=== PATIENT | female | born 1950 | race African-American/Black ===

== ENCOUNTER 2016-10-16 17:40 | Inpatient (IN) | payer OTHER ==
[~2016-10-16] VITALS: Ht 157.5 cm; Wt 60.0 kg
[~2016-10-16 17:40] MED LIST: ALLO100T PO; LISI-363 PO; LORTA5 PO; METO100T PO; NIFE90TA37 PO; NOVOINJ6 SQ; SIMV10TA PO; ZOFR4TAB3 SL
[2016-10-16 17:42] VITALS: BP 145/73; PULSE 72; RESP 15; TEMP 97.7; O2SAT 96
[2016-10-16 17:53] VITALS: BP 134/85; PULSE 72; RESP 18; TEMP 98; O2SAT 96
[2016-10-16] MEDS ORDERED: HYDR12.57 PO (18:07)
[2016-10-16] MEDS ORDERED: METO50TA11 PO (18:07)
[2016-10-16] MEDS ORDERED: ALLO100T PO (18:07)
[2016-10-16] MEDS ORDERED: NIFE90TA2 PO (18:07)
[2016-10-16] MEDS ORDERED: LISI-515 PO (18:07)
[2016-10-16] MEDS ORDERED: SODIUM CHLOR 0.9% 1000 ML INJ 1,000 ML IV SCH (18:26)
--- NOTE | 2016-10-16 18:26 | PD ---
HPI Chief Complaint: Abnormal Results Time Seen by Provider: 18:22 Travel History International Travel<30 days: No Contact w/Intl Traveler<30days: No Traveled to known affect area: No History of Present Illness HPI 66-year-old female that presents to the ED for evaluation of abnormal results. Per patient she went to see her doctor this week and had blood work done yesterday. Per patient today her doctor let her know that her BUN/creatinine were highly elevated and she was brought here for evaluation. She states that she has no symptoms. Per patient she follows with Dr. Landrum from nephrology and is currently being observed for what appears to be kidney disease. Per patient her bowel is were really high and she was told to come here for evaluation. Patient has a history of hypertension and diabetes. Per patient this is a control. Per patient she denies any weakness. No chest pain or shortness of breath. Has an allergy to meperidine. From what patient can tell me her BUN was in the 100s and her creatinine was 14. PFSH Past Medical History Blood Disorders: No Cancer: No High Cholesterol: Yes Chemotherapy: No Diabetes: Yes Patient Takes Glucophage: No Diminished Hearing: No GERD: Yes Hypertension: Yes Radiation Therapy: No Renal Failure: Yes Tetanus Vaccination: Unknown Tubal Ligation: Yes Past Surgical History AICD: No Section: Yes Gynecologic Surgery: Yes (tubal ligation, hysterectomy) Hysterectomy: Yes Pacemaker: No Other Surgery: Yes (KELOID REMOVED FROM ABD) Social History Alcohol Use: No Tobacco Use: No Substance Use: No Allergies-Medications (Allergen,Severity, Reaction): Coded Allergies: Meperidine (Verified Adverse Reaction, Intermediate, ITCHING, 10/16/16) Reported Meds & Prescriptions Reported Meds & Active Scripts Active Reported Metoprolol Succinate ER 24 HR (Metoprolol Succinate) 50 Mg Tab 50 Mg PO DAILY Nifedipine ER (Nifedipine) 90 Mg Tab 1 Tab PO DAILY Lisinopril 20 Mg Tab 20 Mg PO BID Allopurinol 100 Mg Tab 100 Mg PO DAILY Hydrochlorothiazide 12.5 Mg Cap 12.5 Mg PO DAILY Review of Systems Except as stated in HPI: all other systems reviewed are Neg Physical Exam Narrative GENERAL: SKIN: Warm and dry. HEAD: Atraumatic. Normocephalic. EYES: Pupils equal and round. No scleral icterus. No injection or drainage. ENT: No nasal bleeding or discharge. Mucous membranes pink and moist. Tongue is midline. No uvula deviation. NECK: Trachea midline. No JVD. CARDIOVASCULAR: Regular rate and rhythm. No murmurs, S3, S4. RESPIRATORY: No accessory muscle use. Clear to auscultation. Breath sounds equal bilaterally. GASTROINTESTINAL: Abdomen soft, non-tender, nondistended. Hepatic and splenic margins not palpable. MUSCULOSKELETAL: Extremities without clubbing, cyanosis, or edema. No obvious deformities. Full range of motion of the upper and lower extremities bilaterally. 2+ pulses bilaterally. NEUROLOGICAL: Awake and alert. No obvious cranial nerve deficits. Motor grossly within normal limits. Five out of 5 muscle strength in the arms and legs. Normal speech. PSYCHIATRIC: Appropriate mood and affect; insight and judgment normal. Data Data Last Documented VS Vital Signs Date Time Temp Pulse Resp B/P Pulse Ox O2 Delivery O2 Flow Rate FiO2 10/16/16 17:53 72 19 97 Room Air 10/16/16 17:53 98.0 134/85 Orders Complete Blood Count With Diff (10/16/16 18:01) Basic Metabolic Panel (Bmp) (10/16/16 18:01) Urinalysis - C+S If Indicated (10/16/16 18:01) Magnesium (Mg) (10/16/16 18:01) Sodium Chlor 0.9% 1000 Ml Inj (Ns 1000 M (10/16/16 18:26) Urine Culture (10/16/16 18:25) Admit To Inpatient (10/16/16 ) Code Status (10/16/16 19:39) Vital Signs (Adult) Q4H (10/16/16 19:39) Activity Oob With Assistance (10/16/16 19:39) Diet 1800 Ada Cons Carb (10/17/16 Breakfast) Sodium Chloride 0.9% Flush (Ns Flush) (10/16/16 19:45) Sodium Chloride 0.9% Flush (Ns Flush) (10/16/16 21:00) Acetaminophen (Tylenol) (10/16/16 19:45) Ondansetron Inj (Zofran Inj) (10/16/16 19:45) Temazepam (Restoril) (10/16/16 19:45) Basic Metabolic Panel (Bmp) (10/17/16 06:00) Complete Blood Count With Diff (10/17/16 06:00) Chest, Single Ap (10/16/16 19:39) Electrocardiogram (10/16/16 19:39) Pt Request For Service (10/16/16 19:39) Scd Bilateral/Knee High AJ.BID (10/16/16 19:39) Naloxone Inj (Narcan Inj) (10/16/16 19:45) Magnesium Hydroxide Liq (Milk Of Magnesi (10/16/16 19:45) Inpatient Certification (10/16/16 ) Allopurinol (Zyloprim) (10/17/16 09:00) Metoprolol Succinate Er (Toprol Xl) (10/17/16 09:00) Nifedipine Sr (Procardia Xl) (10/17/16 09:00) Clonidine (Catapres) (10/16/16 19:45) Enalaprilat Inj (Vasotec Inj) (10/16/16 19:45) Ns + Kcl 20 Meq Inj (Ns + Kcl 20 Meq Inj (10/16/16 19:45) Magnesium (Mg) (10/17/16 06:00) Ceftriaxone Inj (Rocephin Inj) (10/16/16 20:00) Admit Order (Ed Use Only) (10/16/16 19:52) Labs Laboratory Tests Test 10/16/16 18:25 White Blood Count 6.0 TH/MM3 Red Blood Count 5.36 MIL/MM3 Hemoglobin 13.7 GM/DL Hematocrit 40.5 % Mean Corpuscular Volume 75.6 FL Mean Corpuscular Hemoglobin 25.5 PG Mean Corpuscular Hemoglobin 33.7 % Concent Red Cell Distribution Width 15.9 % Platelet Count 178 TH/MM3 Mean Platelet Volume 10.6 FL Neutrophils (%) (Auto) 58.6 % Lymphocytes (%) (Auto) 26.2 % Monocytes (%) (Auto) 12.3 % Eosinophils (%) (Auto) 2.5 % Basophils (%) (Auto) 0.4 % Neutrophils # (Auto) 3.5 TH/MM3 Lymphocytes # (Auto) 1.6 TH/MM3 Monocytes # (Auto) 0.7 TH/MM3 Eosinophils # (Auto) 0.2 TH/MM3 Basophils # (Auto) 0.0 TH/MM3 CBC Comment DIFF FINAL Differential Comment Urine Color LIGHT-YELLOW Urine Turbidity HAZY Urine pH 5.0 Urine Specific [place] 1.009 Urine Protein 30 mg/dL Urine Glucose (UA) NEG mg/dL Urine Ketones NEG mg/dL Urine Occult Blood NEG Urine Nitrite NEG Urine Bilirubin NEG Urine Urobilinogen LESS THAN 2.0 MG/DL Urine Leukocyte Esterase LARGE Urine RBC 9 /hpf Urine WBC 20 /hpf Urine Squamous Epithelial 6 /hpf Cells Urine Transitional Epithelial 1 /hpf Cells Urine Amorphous Sediment RARE Urine Bacteria RARE /hpf Microscopic Urinalysis Comment CULTURE INDICATED Sodium Level 134 MEQ/L Potassium Level 4.1 MEQ/L Chloride Level 102 MEQ/L Carbon Dioxide Level 23.1 MEQ/L Anion Gap 9 MEQ/L Blood Urea Nitrogen 88 MG/DL Creatinine 3.56 MG/DL Estimat Glomerular Filtration 15 ML/MIN Rate Random Glucose 86 MG/DL Calcium Level 9.1 MG/DL Magnesium Level 2.6 MG/DL [facility] Medical Decision Making Medical Screen Exam Complete: Yes Emergency Medical Condition: Yes Medical Record Reviewed: Yes Interpretation(s) CBC & BMP Diagram 10/16/16 18:25 UA shows UTI Differential Diagnosis Kidney failure versus abnormal results versus normal results versus nephropathy Narrative Course 66-year-old female that presents to the ED for evaluation of what appears to be possible kidney failure. Patient was properly examined and was found to have signs and symptoms concerning for kidney failure secondary to abnormal labs. Patient does not know the actual numbers but she says that there were high. She was sent here by her doctor for evaluation of this. Labs will be ordered to make sure this is not an error and to better establish what kind of kidney injury patient is having. Patient was started IV fluids. Labs here show what appears to be urinary tract infection and very high BUN of radiate. Also cranking elevated at 3. From old medical records from 2014 this is a high elevation. Hard to assess what actual values patient has had from Dr. Rothman' s office. I spoke with my attending Dr. Kiran who agrees that admission is recommended for further evaluation as patient was sent here by her PCP. [facility] contacted. Dr. Smith agrees to admission. Diagnosis Primary Impression: Acute kidney injury superimposed on CKD Additional Impression: UTI (urinary tract infection) Qualified Code: N30.00 - Acute cystitis without hematuria Admitting Information Admitting Physician Requests: Observation Dmitry Coleman Oct 16, 2016 18:26
[2016-10-16 19:02] LABS: AUTOMATED NEUTROPHIL # 3.5 TH/MM3 (1.8-7.7); BASOPHIL % 0.4 % (0.0-2.0); EOSINOPHIL # 0.2 TH/MM3 (0-0.4); EOSINOPHIL % 2.5 % (0.0-4.0); HEMATOCRIT 40.5 % (35.0-46.0); HEMO FLAGS DIFF FINAL; LYMPH % 26.2 % (9.0-44.0); LYMPHOCYTE # 1.6 TH/MM3 (1.0-4.8); MEAN CELL VOLUME 75.6 FL (80.0-100.0); MEAN CORPUSCULAR HEMOGLOBIN 25.5 PG (27.0-34.0); MEAN CORPUSCULAR HGB CONC 33.7 % (32.0-36.0); MONO % 12.3 % (0.0-8.0); NEUT % 58.6 % (16.0-70.0); PLATELET COUNT 178 TH/MM3 (150-450); RED BLOOD COUNT 5.36 MIL/MM3 (4.00-5.30); RED CELL DISTRIBUTION WIDTH 15.9 % (11.6-17.2)
[2016-10-16 19:04] LABS: BACTERIA, URINE RARE /hpf; BLOOD, URINE NEG (NEG); COMMENT (UR) CULTURE INDICATED; CULTURE IF INDICATED CULTURE INDICATED; GLUCOSE,URINE NEG (NEG); KETONE, URINE NEG (NEG); NITRITE,URINE NEG (NEG); SQUAMOUS EPITHELIAL CELL URINE 6 /hpf (0-5); TRANSITIONAL EPI CELLS, URINE 1 /hpf; URINE COLOR LIGHT-YELLOW (YELLW/STRAW)
[2016-10-16 19:14] LABS: BICARBONATE 23.1 MEQ/L (21.0-32.0); MAGNESIUM 2.6 MG/DL (1.5-2.5); POTASSIUM 4.1 MEQ/L (3.5-5.1)
[2016-10-16] MEDS ORDERED: MAGNESIUM HYDROXIDE SUSP 30 ML CUP PO PRN (19:45)
[2016-10-16] MEDS ORDERED: ACETAMINOPHEN 325 MG TAB PO PRN (19:45)
[2016-10-16] MEDS ORDERED: SODIUM CHLORIDE 0.9% FLUSH 10 ML FLUSH IV FLUSH PRN (19:45)
[2016-10-16] MEDS ORDERED: cloNIDine HCL 0.2 MG TAB PO PRN (19:45)
[2016-10-16] MEDS ORDERED: NALOXONE HCL 0.4 MG/ML AMP IV PRN (19:45)
[2016-10-16] MEDS ORDERED: ONDANSETRON HCL 4 MG/2 ML VIAL IVP PRN (19:45)
[2016-10-16] MEDS ORDERED: ENALAPRILAT 1.25 MG/ML VIAL IV PRN (19:45)
[2016-10-16] MEDS: NS + KCL 20 MEQ INJ 1,000 ML IV SCH (20:41)
[2016-10-16] MEDS ORDERED: TEMAZEPAM 15 MG CAP PO PRN (21:00)
--- NOTE | 2016-10-16 21:00 | RADRPT ---
EXAM DATE/TIME: 10/16/2016 20:05 [facility] COMPARISON: No previous studies available for comparison. INDICATIONS : Cough. MEDICAL HISTORY : Hypertension. Diabetes mellitus type 2. Gastroesophageal reflux disease.Tuberculosis. SURGICAL HISTORY : Hysterectomy. Tubal ligation. section. ENCOUNTER: Initial ACUITY: 1 day PAIN SCORE: 0/10 LOCATION: Bilateral chest FINDINGS: The heart is enlarged. Descending thoracic aorta is tortuous. The lungs are symmetrically aerated a nd clear. The central bronchopulmonary markings well delineated. Both hemidiaphragms are well delin eated. CONCLUSION: The lungs are clear. Mild cardiomegaly. Sandeep Anders MD on October 16, 2016 at 20:56 Board Certified Radiologist. This report was verified electronically.
[2016-10-16] MEDS: SODIUM CHLORIDE 0.9% FLUSH 10 ML FLUSH IV FLUSH SCH (21:40)
[2016-10-16] MEDS: cefTRIAXone INJ 1,000 MG in SODIUM CHLORIDE 0.9% INJ 100 ML IV SCH (21:40)
[2016-10-16 23:21] VITALS: BP 143/90; PULSE 78; RESP 18; TEMP 98.1; O2SAT 96
[2016-10-17 03:41] VITALS: BP 144/89; PULSE 65; RESP 18; TEMP 97.8; O2SAT 98
[2016-10-17 06:00] LABS: AUTOMATED NEUTROPHIL # 2.5 TH/MM3 (1.8-7.7); BASOPHIL % 0.8 % (0.0-2.0); EOSINOPHIL # 0.2 TH/MM3 (0-0.4); EOSINOPHIL % 3.7 % (0.0-4.0); HEMATOCRIT 35.1 % (35.0-46.0); HEMO FLAGS DIFF FINAL; LYMPH % 29.9 % (9.0-44.0); LYMPHOCYTE # 1.5 TH/MM3 (1.0-4.8); MEAN CELL VOLUME 74.4 FL (80.0-100.0); MEAN CORPUSCULAR HEMOGLOBIN 24.9 PG (27.0-34.0); MEAN CORPUSCULAR HGB CONC 33.5 % (32.0-36.0); MONO % 15.5 % (0.0-8.0); NEUT % 50.1 % (16.0-70.0); PLATELET COUNT 155 TH/MM3 (150-450); RED BLOOD COUNT 4.72 MIL/MM3 (4.00-5.30); RED CELL DISTRIBUTION WIDTH 15.5 % (11.6-17.2); WHITE BLOOD COUNT 5.1 TH/MM3 (4.0-11.0)
[2016-10-17 06:31] LABS: BICARBONATE 21.9 MEQ/L (21.0-32.0); MAGNESIUM 2.5 MG/DL (1.5-2.5); POTASSIUM 4.6 MEQ/L (3.5-5.1)
[2016-10-17 07:58] VITALS: BP 136/84; PULSE 64; RESP 18; TEMP 98.2; O2SAT 97
[2016-10-17] MEDS: ALLOPURINOL 100 MG TAB PO SCH (08:06)
[2016-10-17] MEDS: NIFEdipine 90 MG SUSTAINED RELEASE TAB PO SCH (08:06)
[2016-10-17] MEDS: METOPROLOL SUCCINATE 50 MG EXTENDED RELEASE TAB PO SCH (08:06)
[2016-10-17] MEDS: SODIUM CHLORIDE 0.9% FLUSH 10 ML FLUSH IV FLUSH SCH ×2 (09:00→20:25)
[2016-10-17] MEDS ORDERED: LEVEMIR SQ (09:11)
[2016-10-17] MEDS ORDERED: SIMV10TA PO (09:11)
[2016-10-17] MEDS ORDERED: GLUCAGON 1 MG/ML VIAL OTHER PRN (09:30)
[2016-10-17] MEDS ORDERED: DEXTROSE 50% IN WATER 50 ML VIAL(D50) IV PUSH PRN (09:30)
--- NOTE | 2016-10-17 09:46 | HHI.HP ---
HPI Service [facility] Hospitalists Primary Care Physician Kala Houser MD Admission Diagnosis acute on chronic kidney injury, UTI Chief Complaint: Abnormal labs Travel History International Travel<30 Days: No Contact w/Intl Traveler <30 Da: No Traveled to Known Affected Are: No History of Present Illness Ms. Drake is a pleasant 66 y/o female with diabetes, CKD, stage 4 with diabetic nephropathy, and HTN who presented to the ED for evaluation of abnormal lab results. Per patient she went to see PCP this week and had blood work done on . Per the patient she was called by her PCP yesterday and was told that her BUN/creatinine were highly elevated and she was instructed to report to the ED for further evaluation. Upon review of outpt labs her Cr was 3.3, BUN 82, GFR 13. Pt had lab work performed three times in September 2016 on the , , and . These labs indicated Cr was 2.2 -->2.29 -->2.9, BUN was 38-->36 -->63 , and GFR is 23-->21-->16. Patient has no specific complaints. She follows with Dr. Landrum for nephrology and is currently being monitored for her CKD. Per patient she denies any weakness. No chest pain or shortness of breath. Pt is on Lisinopril and HCTZ as an outpt. Her UA was abnormal and urine culture is pending. Pt without any specific complaints regarding urinary symptoms. Review of Systems Constitutional: DENIES: Fever, Chills Eyes: DENIES: Vision loss Ears, nose, mouth, throat: DENIES: Hearing loss Respiratory: DENIES: Cough, Shortness of breath Cardiovascular: DENIES: Chest pain, Palpitations, Lower Extremity Edema Gastrointestinal: DENIES: Abdominal pain, Nausea, Vomiting Genitourinary: DENIES: Urinary frequency, Urinary incontinence, Urgency, Dysuria Musculoskeletal: DENIES: Back pain, Neck pain Integumentary: DENIES: Rash Immunologic/allergic: DENIES: Urticaria Neurologic: DENIES: Headache Psychiatric: DENIES: Confusion Past Family Social History Past Medical History Diabetes mellitus, insulin dependent Diabetic nephropathy CKD, stage 4 HTN Hyperlipidemia Past Surgical History Tonsillectomy Cesarian section PERRY with BSO Reported Medications Simvastatin 10 Mg PO HS Levemir Inj 10 Units SQ HS Metoprolol Succinate ER 24 HR 50 Mg PO DAILY Nifedipine ER 90 Mg PO DAILY Lisinopril 20 Mg PO BID Allopurinol 100 Mg PO DAILY Hydrochlorothiazide 12.5 Mg PO DAILY Allergies: Coded Allergies: Meperidine (Verified Adverse Reaction, Intermediate, ITCHING, 10/16/16) Family History Noncontributory Social History Denies any alcohol, tobacco or illicit drug use Physical Exam Vital Signs Vital Signs Date Time Temp Pulse Resp B/P Pulse Ox O2 Delivery O2 Flow Rate FiO2 10/17/16 07:58 98.2 64 18 136/84 97 10/17/16 03:41 97.8 65 18 144/89 98 10/16/16 23:21 98.1 78 18 143/90 96 10/16/16 17:53 72 19 97 Room Air 10/16/16 17:53 98.0 72 18 134/85 96 Room Air 10/16/16 17:42 97.7 72 15 145/73 96 Physical Exam GENERAL: This is a well-nourished, well-developed patient, in no apparent distress. HEENT: Atraumatic. Normocephalic. No temporal or scalp tenderness. No scleral icterus. Airway patent. NECK: Trachea midline, supple, nontender. CARDIO: Regular. RESP: CTA bilaterally. No wheezes, rales, or rhonchi. ABD: +BS, soft, non-tender, nondistended. EXT: Extremities without clubbing, cyanosis, or edema. NEURO: Awake and alert. Motor and sensory grossly within normal limits. Normal speech. Laboratory Laboratory Tests Test 10/16/16 10/17/16 18:25 05:32 White Blood Count 6.0 5.1 Red Blood Count 5.36 4.72 Hemoglobin 13.7 11.8 Hematocrit 40.5 35.1 Mean Corpuscular Volume 75.6 74.4 Mean Corpuscular Hemoglobin 25.5 24.9 Mean Corpuscular Hemoglobin 33.7 33.5 Concent Red Cell Distribution Width 15.9 15.5 Platelet Count 178 155 Mean Platelet Volume 10.6 9.9 Neutrophils (%) (Auto) 58.6 50.1 Lymphocytes (%) (Auto) 26.2 29.9 Monocytes (%) (Auto) 12.3 15.5 Eosinophils (%) (Auto) 2.5 3.7 Basophils (%) (Auto) 0.4 0.8 Neutrophils # (Auto) 3.5 2.5 Lymphocytes # (Auto) 1.6 1.5 Monocytes # (Auto) 0.7 0.8 Eosinophils # (Auto) 0.2 0.2 Basophils # (Auto) 0.0 0.0 CBC Comment DIFF FINAL DIFF FINAL Differential Comment Urine Color LIGHT-YELLOW Urine Turbidity HAZY Urine pH 5.0 Urine Specific [place] 1.009 Urine Protein 30 Urine Glucose (UA) NEG Urine Ketones NEG Urine Occult Blood NEG Urine Nitrite NEG Urine Bilirubin NEG Urine Urobilinogen LESS THAN 2.0 Urine Leukocyte Esterase LARGE Urine RBC 9 Urine WBC 20 Urine Squamous Epithelial 6 Cells Urine Transitional Epithelial 1 Cells Urine Amorphous Sediment RARE Urine Bacteria RARE Microscopic Urinalysis Comment CULTURE INDICATED Sodium Level 134 141 Potassium Level 4.1 4.6 Chloride Level 102 112 Carbon Dioxide Level 23.1 21.9 Anion Gap 9 7 Blood Urea Nitrogen 88 69 Creatinine 3.56 2.70 Estimat Glomerular Filtration 15 21 Rate Random Glucose 86 74 Calcium Level 9.1 8.7 Magnesium Level 2.6 2.5 Date/Time Procedure Status Source Growth 10/16/16 18:25 Urine Culture Received Urine Random Urine Pending Result Diagram: 10/17/16 0532 10/17/16 0532 Imaging Last Impressions Chest X-Ray 10/16/16 193 Signed Impressions: Service Date/Time: Sunday, October 16, 2016 20:05 - CONCLUSION: The lungs are clear. Mild cardiomegaly. Sandeep Anders MD Septic Shock Reassessment Heart: Regular rate and rhythm Lungs: Clear Skin: Warm Peripheral Pulses: Bounding Right Radial Bounding Left Radial Bounding Right Popliteal Bounding Left Popliteal Bounding Right Dorsalis Pedis Bounding Left Dorsalis Pedis Bounding Right Posterior Tibial Bounding Left Posterior Tibial Assessment and Plan Problem List: (1) Acute renal failure superimposed on stage 4 chronic kidney disease Status: Acute Plan: - Pt is a 66 y/o female with diabetes, CKD, stage 4 with diabetic nephropathy, and HTN - She presented to the ED for evaluation of abnormal lab results. She had outpt blood work done on 10/15/16 and was called by her PCP yesterday and was told that her BUN/creatinine were highly elevated and she was instructed to report to the ED for further evaluation. - Upon review of outpt labs on 10/15/16 were Cr was 3.3, BUN 82, GFR 13. - Pt had lab work performed three times in September 2016 on the , , and . These labs indicated Cr was 2.2 -->2.29 -->2.9, BUN was 38-->36 -->63, and GFR is 23-->21-->16. - She follows with Dr. Landrum for nephrology and is currently being monitored for her CKD. - We will consult Nephrology - Pt is on Lisinopril and HCTZ as an outpt and these are being held. - Her UA was abnormal and urine culture is pending. - Pt was given IVF overnight with improvement in her labs to Cr 2.7, BUN 69, GFR 21 - Check Renal US - Await urine culture - Avoid nephrotoxic medications. - Monitor labs - Encourage oral intake - Supportive care - DVT prophylaxis (2) UTI (urinary tract infection) Status: Acute Plan: - UA was abnormal at admission - Urine culture is pending. (3) Diabetes mellitus type 2, insulin dependent Status: Chronic Plan: - NovoLog SSI - Pt is on Levemir 10 units HS, will hold on restarting at this time until we see how her blood sugars are running. - HgbA1C 5.4% on 10/03/16 (4) HTN (hypertension), benign Status: Chronic Plan: - Resume Metoprolol and Nifedipine - Hold Lisinopril - Observe (5) Hyperlipidemia Status: Chronic Plan: - Cont. home meds Physician Certification 2 Midnight Certification Type: Admission for Inpatient Services Order for Inpatient Services The services are ordered in accordance with Medicare regulations or non- Medicare payer requirements, as applicable. In the case of services not specified as inpatient-only, they are appropriately provided as inpatient services in accordance with the 2-midnight benchmark. Estimated LOS (days): 2 2 days is the estimated time the patient will need to remain in the hospital, assuming treatment plan goals are met and no additional complications. Post-Hospital Plan: Home Problem Qualifiers (1) UTI (urinary tract infection): Qualified Code: N30.00 - Acute cystitis without hematuria Yojana Cooper Oct 17, 2016 09:45
[2016-10-17] MEDS: INSULIN ASPART SUPPLEMENTAL SCALE SQ SCH ×3 (11:00→20:33)
[2016-10-17] MEDS: NS + KCL 20 MEQ INJ 1,000 ML IV SCH (12:08)
--- NOTE | 2016-10-17 12:20 | RADRPT ---
EXAM DATE/TIME: 10/17/2016 11:49 [facility] COMPARISON: CT ABDOMEN & PELVIS W/O CONTRAST, March 02, 2015, 15:28. INDICATIONS : Increased BUN/Creatinine. MEDICAL HISTORY : Hypercholesterolemia. Gastroesophageal reflux disease. Hypertension. Tuberculosis. Renal failure. Kalie betes. Blood transfusion. SURGICAL HISTORY : Tubal ligation. Hysterectomy. Keloid removal. ENCOUNTER: Initial ACUITY: > 1 year PAIN SCORE: 0/10 LOCATION: Bilateral flank MEASUREMENTS: RIGHT KIDNEY: 9.7 x 4.8 x 4.0 cm LEFT KIDNEY: 6.9 x 4.6 x 3.0 cm FINDINGS: The kidneys are small in size, left more so than right and hyperechoic consistent with the history of renal disease. There is a 7 mm cyst at the upper pole of the right kidney. It is simple in appearanc e. There is no hydronephrosis. Bladder unremarkable. CONCLUSION: 1. Hyperechoic kidneys are noted bilaterally with a ptotic left kidney present. 2. Renal atrophy. 3. Right renal cyst. Arturo Lua MD on October 17, 2016 at 12:16 Board Certified Radiologist. This report was verified electronically.
[2016-10-17 13:00] VITALS: BP 137/80; PULSE 58; RESP 16; TEMP 96.7; O2SAT 99
[2016-10-17] MEDS: SODIUM CHLOR 0.45% 1000 ML INJ 1,000 ML IV SCH (15:06)
--- NOTE | 2016-10-17 16:13 | PD.CONS ---
HPI Service Nephrology Consult Requested By Dr. Smith Reason for Consult Acute and chronic kidney disease Primary Care Physician Kala Houser MD History of Present Illness Patient is a 66-year-old the female with history of diabetes, chronic kidney disease, hypertension who stated that she went to for her blood work last week and was told by primary care physician to come to the hospital as her creatinine was elevated, she states she had been followed by Dr. Landrum but has not seen him for the past year, she came in for admission and got admitted to treated for UTI as well, with hydration her creatinine has already declined, she states she is restricted fluids to 48 ounces as she read somewhere to restrict fluids with kidney problems. Review of Systems Constitutional: COMPLAINS OF: Fatigue Past Family Social History Allergies: Coded Allergies: Meperidine (Verified Adverse Reaction, Intermediate, ITCHING, 10/16/16) Past Medical History Diabetes on insulin Diabetic nephropathy Chronic kidney disease stage 4 Hypertension Hyperlipidemia Past Surgical History Tonsillectomy Cesarian section Hysterectomy and bilateral salpingo-oophorectomy Reported Medications Reported Meds & Active Scripts Active Reported Simvastatin 10 Mg Tab 10 Mg PO HS Levemir Inj (Insulin Detemir) 1,000 unit/ 10 ML Vial 10 Units SQ HS Do not mix with any other Insulin. Metoprolol Succinate ER 24 HR (Metoprolol Succinate) 50 Mg Tab 50 Mg PO DAILY Nifedipine ER (Nifedipine) 90 Mg Tab 1 Tab PO DAILY Lisinopril 20 Mg Tab 20 Mg PO BID Allopurinol 100 Mg Tab 100 Mg PO DAILY Hydrochlorothiazide 12.5 Mg Cap 12.5 Mg PO DAILY Active Ordered Medications Current Medications Medications (Trade) Dose Ordered Sig/Cayden Route Start Time Stop Time Status Last Admin (NS Flush) 2 ml UNSCH PRN IV FLUSH 10/16/16 19:45 (NS Flush) 2 ml BID IV FLUSH 10/16/16 21:00 10/16/16 21:40 (Tylenol) 650 mg Q4H PRN PO 10/16/16 19:45 (Zofran Inj) 4 mg Q6H PRN IVP 10/16/16 19:45 (Restoril) 15 mg HS PRN PO 10/16/16 21:00 (Narcan Inj) 0.4 mg UNSCH PRN IV 10/16/16 19:45 (Milk Of Magnesia Liq) 30 ml Q12H PRN PO 10/16/16 19:45 (Zyloprim) 100 mg DAILY PO 10/17/16 09:00 10/17/16 08:06 (Toprol Xl) 50 mg DAILY PO 10/17/16 09:00 10/17/16 08:06 (Procardia Xl) 90 mg DAILY PO 10/17/16 09:00 10/17/16 08:06 (Catapres) 0.2 mg Q6H PRN PO 10/16/16 19:45 Enalaprilat 1.25 mg 1.25 mg Q6H PRN IV 10/16/16 19:45 (Rocephin Inj/NS Inj) 100 ml @ 200 mls/hr Q24H IV 10/16/16 21:00 10/16/16 21:40 (Pravachol) 20 mg HS PO 10/17/16 21:00 (D50w (Vial) Inj) 25 ml UNSCH PRN IV PUSH 10/17/16 09:30 Glucagon 1 mg 1 mg UNSCH PRN OTHER 10/17/16 09:30 (1/2 NS 1000 ml Inj) 1,000 ml @ 84 mls/hr [id number] IV 10/17/16 14:45 10/18/16 08:00 10/17/16 15:06 Family History Noncontributory Social History Denies smoking or alcohol use Physical Exam Vital Signs Vital Signs Date Time Temp Pulse Resp B/P Pulse Ox O2 Delivery O2 Flow Rate FiO2 10/17/16 13:00 96.7 58 16 137/80 99 10/17/16 07:58 98.2 64 18 136/84 97 10/17/16 03:41 97.8 65 18 144/89 98 10/16/16 23:21 98.1 78 18 143/90 96 10/16/16 17:53 72 19 97 Room Air 10/16/16 17:53 98.0 72 18 134/85 96 Room Air 10/16/16 17:42 97.7 72 15 145/73 96 Physical Exam GENERAL: Well-nourished, well-developed patient. SKIN: Warm and dry. HEAD: Normocephalic. EYES: No scleral icterus. No injection or drainage. NECK: Supple, trachea midline. No JVD or lymphadenopathy. CARDIOVASCULAR: Regular rate and rhythm without murmurs, gallops, or rubs. RESPIRATORY: Breath sounds equal bilaterally. No accessory muscle use. GASTROINTESTINAL: Abdomen soft, non-tender, nondistended. EXTREMITIES: No cyanosis, or edema. NEUROLOGICAL: Awake, alert, and oriented x 3. Non-focal. Laboratory Laboratory Tests Test 10/16/16 10/17/16 18:25 05:32 White Blood Count 6.0 5.1 Red Blood Count 5.36 4.72 Hemoglobin 13.7 11.8 Hematocrit 40.5 35.1 Mean Corpuscular Volume 75.6 74.4 Mean Corpuscular Hemoglobin 25.5 24.9 Mean Corpuscular Hemoglobin 33.7 33.5 Concent Red Cell Distribution Width 15.9 15.5 Platelet Count 178 155 Mean Platelet Volume 10.6 9.9 Neutrophils (%) (Auto) 58.6 50.1 Lymphocytes (%) (Auto) 26.2 29.9 Monocytes (%) (Auto) 12.3 15.5 Eosinophils (%) (Auto) 2.5 3.7 Basophils (%) (Auto) 0.4 0.8 Neutrophils # (Auto) 3.5 2.5 Lymphocytes # (Auto) 1.6 1.5 Monocytes # (Auto) 0.7 0.8 Eosinophils # (Auto) 0.2 0.2 Basophils # (Auto) 0.0 0.0 CBC Comment DIFF FINAL DIFF FINAL Differential Comment Urine Color LIGHT-YELLOW Urine Turbidity HAZY Urine pH 5.0 Urine Specific [place] 1.009 Urine Protein 30 Urine Glucose (UA) NEG Urine Ketones NEG Urine Occult Blood NEG Urine Nitrite NEG Urine Bilirubin NEG Urine Urobilinogen LESS THAN 2.0 Urine Leukocyte Esterase LARGE Urine RBC 9 Urine WBC 20 Urine Squamous Epithelial 6 Cells Urine Transitional Epithelial 1 Cells Urine Amorphous Sediment RARE Urine Bacteria RARE Microscopic Urinalysis Comment CULTURE INDICATED Sodium Level 134 141 Potassium Level 4.1 4.6 Chloride Level 102 112 Carbon Dioxide Level 23.1 21.9 Anion Gap 9 7 Blood Urea Nitrogen 88 69 Creatinine 3.56 2.70 Estimat Glomerular Filtration 15 21 Rate Random Glucose 86 74 Calcium Level 9.1 8.7 Magnesium Level 2.6 2.5 Date/Time Procedure Status Source Growth 10/16/16 18:25 Urine Culture - Preliminary Resulted Urine Random Urine IMMATURE GROWTH - REINCUBATE Result Diagram: 10/17/16 0532 10/17/16 0532 Imaging Last Impressions Renal Ultrasound 10/17/16 0000 Signed Impressions: Service Date/Time: Monday, October 17, 2016 11:49 - CONCLUSION: 1. Hyperechoic kidneys are noted bilaterally with a ptotic left kidney present. 2. Renal atrophy. 3. Right renal cyst. Arturo Lua MD Chest X-Ray 10/16/16 1939 Signed Impressions: Service Date/Time: Sunday, October 16, 2016 20:05 - CONCLUSION: The lungs are clear. Mild cardiomegaly. Sandeep Anders MD Assessment and Plan Problem List: (1) Acute renal failure superimposed on stage 4 chronic kidney disease Plan: This is likely due to dehydration, patient is told to drink fluids as needed the she is restricting her fluids however fluid restriction comes in plate in end-stage renal disease Since she has stage IV chronic kidney disease she can drink more fluids as tolerated, she can be restarted on lisinopril however I will hold HCTZ due to her tendency to get dehydrated There is questionable UTI although the culture did not grow any specific organs As her creatinine is declining the I will recommend discharge and follow-up as outpatient with Dr. Landrum (2) Diabetes mellitus type 2, insulin dependent Plan: Continue to monitor (3) HTN (hypertension), benign Plan: Stable Problem Qualifiers (1) Acute renal failure superimposed on stage 4 chronic kidney disease: Qualified Code: N17.9 - Acute renal failure superimposed on stage 4 chronic kidney disease, unspecified acute renal failure type Marissa Ricketts MD Oct 17, 2016 16:13
[2016-10-17 20:00] VITALS: BP 137/79; PULSE 67; RESP 19; TEMP 96.5; O2SAT 96
[2016-10-17] MEDS: cefTRIAXone INJ 1,000 MG in SODIUM CHLORIDE 0.9% INJ 100 ML IV SCH (20:24)
[2016-10-17] MEDS ORDERED: PRAVASTATIN SOD 20 MG TAB PO SCH (21:00)
[2016-10-18] VITALS: BP 143/80; PULSE 89; RESP 20; TEMP 96.8; O2SAT 98
[2016-10-18] MEDS: SODIUM CHLOR 0.45% 1000 ML INJ 1,000 ML IV SCH (02:44)
[2016-10-18] MEDS: INSULIN ASPART SUPPLEMENTAL SCALE SQ SCH ×2 (06:01→11:00)
[2016-10-18 07:14] LABS: BICARBONATE 24.9 MEQ/L (21.0-32.0); MAGNESIUM 2.3 MG/DL (1.5-2.5); POTASSIUM 4.5 MEQ/L (3.5-5.1)
[2016-10-18 08:00] VITALS: BP 134/78; PULSE 56; RESP 17; TEMP 97.1; O2SAT 98
[2016-10-18] MEDS: SODIUM CHLORIDE 0.9% FLUSH 10 ML FLUSH IV FLUSH SCH (08:48)
[2016-10-18] MEDS: NIFEdipine 90 MG SUSTAINED RELEASE TAB PO SCH (08:48)
[2016-10-18] MEDS: ALLOPURINOL 100 MG TAB PO SCH (08:48)
[2016-10-18] MEDS: METOPROLOL SUCCINATE 50 MG EXTENDED RELEASE TAB PO SCH (08:48)
--- NOTE | 2016-10-18 10:24 | HHI.NPPN ---
Subjective General Problems: Hypertension Renal Failure: Chronic, Acute Interval History Sitting up in bed. Tolerating diet. Renal function is better. No acute concerns. (Lisette Sanchez) Objective Data Data 10/17/16 10/18/16 18:59 06:59 Intake Total 2501 ml Output Total 2200 ml Balance 301 ml Intake Oral 360 ml IV Total 2141 ml Output Urine Total 2200 ml # Bowel Movements 0 Vital Signs Date Time Temp Pulse Resp B/P Pulse Ox O2 Delivery O2 Flow Rate FiO2 10/18/16 08:00 97.1 56 17 134/78 98 10/18/16 00:00 96.8 89 20 143/80 98 10/17/16 20:00 96.5 67 19 137/79 96 10/17/16 13:00 96.7 58 16 137/80 99 (Lisette Sanchez) -: 10/17/16 0532 10/18/16 0457 Imaging Last 72 hours Impressions Renal Ultrasound 10/17/16 0000 Signed Impressions: Service Date/Time: Monday, October 17, 2016 11:49 - CONCLUSION: 1. Hyperechoic kidneys are noted bilaterally with a ptotic left kidney present. 2. Renal atrophy. 3. Right renal cyst. Arturo Lua MD Chest X-Ray 10/16/16 193 Signed Impressions: Service Date/Time: Sunday, October 16, 2016 20:05 - CONCLUSION: The lungs are clear. Mild cardiomegaly. Sandeep Andres MD (Lisette Sanchez) Physical Exam General Appearance: Well Developed, Well Nourished, No Acute Distress, Comfortable ( Lisette Sanchez) Eyes Eye Exam: Pupils Equal (Lisette Sanchez) Throat Throat Exam: Oral Mucosa [place] & Moist (Lisette Sanchez) Pulmonary Resp Exam: Clear Bilaterally, Breath Sounds Equal, No Distress (Lisette Sanchez) Cardiology CV Exam: Regular, Normal Sinus Rhythm, Good Perfusion (Lisette Sanchez) Gastrointestinal/Abdomen GI Exam: Soft, Non-Tender, Bowel Sounds Present, Positive Bowel Movement ( Lisette Sanchez) Musculoskeletal MS Exam: Joints Intact, Normal Gait, Normal Tone, Good Strength (Lisette Sanchez) Integumentary Skin Exam: Clear, Warm, Dry, Intact (Lisette Sanchez) Extremeties Extremities Exam: No Edema, Pedal Pulses Palpable (Lisette Sanchez) Neurologic Neuro Exam: Alert, Awake, Oriented, Speech Clear, Moving All Extremities ( Lisette Sanchez) Psychiatric Psych Exam: Appropriate Responses (Lisette Sanchez) Assessment/Plan Discussed Condition With: Patient Assessment Summary: HONEY/Acute Renal Failure, Proteinuria, Hypertension Problem List: (1) Acute renal failure superimposed on stage 4 chronic kidney disease Plan: In 2014 her baseline creatinine was 2.0, she has mild proteinuria may have underlying diabetic nephropathy HONEY may be due to overdiuresis as HCTZ was initiated in outpatient setting recently her renal function is improving, now near baseline I will stop IVF avoid HCTZ in the future she is non oliguric, stable from renal standpoint can be discharged with outpatient follow up, has seen Dr. Landrum in the past year we discussed dietary considerations including adequate water intake, minimize processed foods, increase plant/vegetable intake, avoid NSAIDs after discharge (2) Diabetes mellitus type 2, insulin dependent Plan: Monitor glucose, goal 140-180 mg/dL insulin as needed (3) HTN (hypertension), benign Plan: Stable continue present medications, avoiding diuretics at this time (4) UTI (urinary tract infection) Plan: culture is not available she is afebrile, without leukocytosis she is on rocephin, convert to PO antibiotics when able (Lisette Sanchez) Plan patient was seen and examined. Agree with above assessment and plan. (Alex Guzmán MD) Problem Qualifiers (1) Acute renal failure superimposed on stage 4 chronic kidney disease: Qualified Code: N17.9 - Acute renal failure superimposed on stage 4 chronic kidney disease, unspecified acute renal failure type (2) UTI (urinary tract infection): Qualified Code: N30.00 - Acute cystitis without hematuria Lisette Sanchez Oct 18, 2016 10:24 Alex Guzmán MD Oct 18, 2016 17:27
[2016-10-18 12:00] VITALS: BP 130/76; PULSE 60; RESP 17; TEMP 97.3; O2SAT 98
[2016-10-18 16:00] VITALS: BP 118/74; PULSE 60; RESP 16; TEMP 96.2; O2SAT 100
--- NOTE | 2016-10-18 17:18 | HHI.PR ---
Subjective Remarks No new complaints. Objective Vitals Vital Signs Date Time Temp Pulse Resp B/P Pulse Ox O2 Delivery O2 Flow Rate FiO2 10/18/16 16:00 96.2 60 16 118/74 100 10/18/16 12:00 97.3 60 17 130/76 98 10/18/16 08:00 97.1 56 17 134/78 98 10/18/16 00:00 96.8 89 20 143/80 98 10/17/16 20:00 96.5 67 19 137/79 96 10/17/16 10/17/16 10/18/16 15:00 23:00 07:00 Intake Total 1633 ml 868 ml Output Total 900 ml 1300 ml Balance 733 ml -432 ml Intake Oral 240 ml 120 ml IV Total 1393 ml 748 ml Output Urine Total 900 ml 1300 ml # Bowel Movements 0 0 Result Diagram: 10/17/16 0532 10/18/16 0457 Imaging Last Impressions Chest X-Ray 10/16/161938 Signed Impressions: Service Date/Time: Sunday, October 16, 2016 20:05 - CONCLUSION: The lungs are clear. Mild cardiomegaly. Sandeep Anders MD Objective Remarks GENERAL: This is a well-nourished, well-developed patient, in no apparent distress. CARDIOVASCULAR: Regular rate and rhythm without murmurs, gallops, or rubs. RESPIRATORY: Clear to auscultation. Breath sounds equal bilaterally. No wheezes , rales, or rhonchi. GASTROINTESTINAL: Abdomen soft, non-tender, nondistended. Normal active bowel sounds MUSCULOSKELETAL: Extremities without clubbing, cyanosis, or edema. NEURO: Alert & Oriented x4 to person, place, time, situation. Moves all ext x4 A/P Problem List: (1) Acute renal failure superimposed on stage 4 chronic kidney disease Status: Acute Plan: - Pt is a 66 y/o female with diabetes, CKD, stage 4 with diabetic nephropathy, and HTN - She presented to the ED for evaluation of abnormal lab results. She had outpt blood work done on 10/15/16 and was called by her PCP yesterday and was told that her BUN/creatinine were highly elevated and she was instructed to report to the ED for further evaluation. - Upon review of outpt labs on 10/15/16 were Cr was 3.3, BUN 82, GFR 13. - Pt had lab work performed three times in September 2016 on the , , and . These labs indicated Cr was 2.2 -->2.29 -->2.9, BUN was 38-->36 -->63, and GFR is 23-->21-->16. - She follows with Dr. Landrum for nephrology and is currently being monitored for her CKD. - We will consult Nephrology - Pt is on Lisinopril and HCTZ as an outpt and these are being held. - Her UA was abnormal and urine culture is pending. - Pt was given IVF overnight with improvement in her labs to Cr 2.7, BUN 69, GFR 21 BUN 56 and creatinine 2.34 on 10/18/16 - Renal US (10/18/16) --> NO acute abnormalities - urine culture --> contaminants - Avoid nephrotoxic medications. - discharge to home - see discharge orders - f/u with PCP, Dr. Rothamn, in 1 week - f/u with Nephrology, Dr. Landrum, in 2 weeks. (2) UTI (urinary tract infection) Status: Acute Plan: - UA was abnormal at admission - Urine culture --> contaminants. (3) Diabetes mellitus type 2, insulin dependent Status: Chronic Plan: - NovoLog SSI - Pt is on Levemir 10 units HS, will hold on restarting at this time until we see how her blood sugars are running. - HgbA1C 5.4% on 10/03/16 (4) HTN (hypertension), benign Status: Chronic Plan: - Resume Metoprolol and Nifedipine - Hold Lisinopril - Observe (5) Hyperlipidemia Status: Chronic Plan: - Cont. home meds Problem Qualifiers (1) Acute renal failure superimposed on stage 4 chronic kidney disease: Qualified Code: N17.9 - Acute renal failure superimposed on stage 4 chronic kidney disease, unspecified acute renal failure type (2) UTI (urinary tract infection): Qualified Code: N30.00 - Acute cystitis without hematuria Clement Smith DO Oct 18, 2016 17:18
== END 2016-10-18 18:07 | disposition home or self-care (01) | DRG 683 ==
LOC: NEPC 17:40 → NEDA 19:54 → NEPGCP 21:20 → NEDA 23:22 → N07B 10-17 13:24
PROVIDERS: ADMIT Hospitalist; ATTEND Hospitalist
DX: N17.9 Acute kidney failure, unspecified (principal); N30.00 Acute cystitis without hematuria; E11.21 Type 2 diabetes mellitus with diabetic nephropathy; K21.9 Gastro-esophageal reflux disease without esophagitis; E78.00 Pure hypercholesterolemia, unspecified; Z79.84 Long term (current) use of oral hypoglycemic drugs; E11.22 Type 2 diabetes mellitus with diabetic chronic kidney disease; I12.9 Hypertensive chronic kidney disease with stage 1 through stage 4 chronic kidney disease, or unspecified chronic kidney disease; N18.4 Chronic kidney disease, stage 4 (severe); E78.5 Hyperlipidemia, unspecified; E86.0 Dehydration
CPT/HCPCS: 71010; 76775; 80048; 81001; 82948; 83735; 85025; 87086; J0696; J3480; J7030

== ENCOUNTER 2017-03-10 15:20 | Emergency (ER) | payer MEDICARE ==
[~2017-03-10] VITALS: Ht 157.5 cm; Wt 59.0 kg
[~2017-03-10 15:20] MED LIST changes: +LEVEMIR SQ; -LISI-363 PO; +LISI-515 PO; -LORTA5 PO; -METO100T PO; +METO1TAB9 PO; +NIFE90TA2 PO; -NIFE90TA37 PO; -NOVOINJ6 SQ; -ZOFR4TAB3 SL
[2017-03-10 15:22] VITALS: BP 176/93; PULSE 72; RESP 16; TEMP 97.8; O2SAT 100
[2017-03-10 15:33] VITALS: BP 178/97; PULSE 62; RESP 16; O2SAT 100
[2017-03-10] MEDS ORDERED: SODIUM CHLOR 0.9% 1000 ML INJ 1,000 ML IV SCH (15:38)
--- NOTE | 2017-03-10 15:43 | PD ---
HPI Chief Complaint: Abdominal Pain Time Seen by Provider: 15:29 Travel History International Travel<30 days: No Contact w/Intl Traveler<30days: No Traveled to known affect area: No History of Present Illness HPI 66-year-old female complains of right low quadrant abdominal pain. Patient states the symptoms started about an hour ago. Patient states the pain is sharp pain localized to right low quadrant of the abdomen. Patient denies any pain radiation. Patient denies any nausea vomiting diarrhea. Patient denies any dysuria or frequency. Patient status post hysterectomy in the past. Patient denies any fever chills. Patient denies any back pain. On a scale of 1 -10 the pain is an 8. PFSH Past Medical History Blood Disorders: No Heart Rhythm Problems: No Cancer: No Cardiovascular Problems: Yes High Cholesterol: Yes Chemotherapy: No Chest Pain: No Congestive Heart Failure: No Diabetes: Yes Diminished Hearing: No Endocrine: Yes GERD: Yes Genitourinary: Yes Hypertension: Yes Musculoskeletal: No Neurologic: No Psychiatric: No Reproductive: No Respiratory: No Radiation Therapy: No Renal Failure: Yes Thyroid Disease: No ?: Not Tubal Ligation: Yes Past Surgical History Abdominal Surgery: Yes AICD: No Cardiac Surgery: No Section: Yes Ear Surgery: No Endocrine Surgery: No Eye Surgery: No Genitourinary Surgery: No Gynecologic Surgery: Yes (tubal ligation, hysterectomy) Hysterectomy: Yes Oral Surgery: No Pacemaker: No Thoracic Surgery: No Other Surgery: Yes (KELOID REMOVED FROM ABD) Social History Alcohol Use: No Tobacco Use: No Substance Use: No Allergies-Medications (Allergen,Severity, Reaction): Coded Allergies: meperidine (Unverified Adverse Reaction, Intermediate, ITCHING, 03/10/17) Reported Meds & Prescriptions Reported Meds & Active Scripts Active Reported Simvastatin 10 Mg Tab 10 Mg PO HS Metoprolol Succinate ER 24 HR (Metoprolol Succinate) 50 Mg Tab 50 Mg PO DAILY Nifedipine ER (Nifedipine) 90 Mg Tab 1 Tab PO DAILY Lisinopril 20 Mg Tab 20 Mg PO DAILY Allopurinol 100 Mg Tab 100 Mg PO DAILY Review of Systems General / Constitutional: No: Fever Eyes: No: Visual changes HENT: No: Headaches Cardiovascular: No: Chest Pain or Discomfort Respiratory: No: Shortness of Breath Gastrointestinal: Positive: Abdominal Pain Genitourinary: No: Dysuria Musculoskeletal: No: Pain Skin: No Rash Neurologic: No: Weakness Psychiatric: No: Depression Endocrine: No: Polydipsia Hematologic/Lymphatic: No: Easy Bruising Physical Exam Narrative GENERAL: Well-nourished, well-developed patient. SKIN: Focused skin assessment warm/dry. HEAD: Normocephalic. EYES: No scleral icterus. No injection or drainage. NECK: Supple, trachea midline. No JVD or lymphadenopathy. CARDIOVASCULAR: Regular rate and rhythm without murmurs, gallops, or rubs. RESPIRATORY: Breath sounds equal bilaterally. No accessory muscle use. GASTROINTESTINAL: Abdomen soft, nondistended. Patient has mild to moderate tenderness on palpation right low quadrant of the abdomen. No rebound tenderness. No mass. MUSCULOSKELETAL: No cyanosis, or edema. BACK: Nontender without obvious deformity. No CVA tenderness. Data Data Last Documented VS Vital Signs Date Time Temp Pulse Resp B/P (MAP) Pulse Ox O2 Delivery O2 Flow Rate FiO2 03/10/17 18:31 72 16 165/86 (112) 97 Room Air 03/10/17 15:22 97.8 Orders Orders Complete Blood Count With Diff (03/10/17 15:38) Comprehensive Metabolic Panel (03/10/17 15:38) Lipase (03/10/17 15:38) Prothrombin Time / Inr (Pt) (03/10/17 15:38) Act Partial Throm Time (Ptt) (03/10/17 15:38) Urinalysis - C+S If Indicated (03/10/17 15:38) Iv Access Insert/Monitor (03/10/17 15:38) Ecg Monitoring (03/10/17 15:38) Oximetry (03/10/17 15:38) Sodium Chlor 0.9% 1000 Ml Inj (Ns 1000 M (03/10/17 15:38) Sodium Chloride 0.9% Flush (Ns Flush) (03/10/17 15:45) Famotidine Inj (Pepcid Inj) (03/10/17 15:45) Ct Abd/Pel W/O Iv Contrast (03/10/17 15:38) Ed Discharge Order (03/10/17 18:33) Labs Laboratory Tests Test 03/10/17 15:55 White Blood Count 7.2 TH/MM3 Red Blood Count 4.35 MIL/MM3 Hemoglobin 11.7 GM/DL Hematocrit 34.1 % Mean Corpuscular Volume 78.3 FL Mean Corpuscular Hemoglobin 26.8 PG Mean Corpuscular Hemoglobin Concent 34.2 % Red Cell Distribution Width 15.9 % Platelet Count 168 TH/MM3 Mean Platelet Volume 9.7 FL Neutrophils (%) (Auto) 59.1 % Lymphocytes (%) (Auto) 27.1 % Monocytes (%) (Auto) 9.8 % Eosinophils (%) (Auto) 3.5 % Basophils (%) (Auto) 0.5 % Neutrophils # (Auto) 4.3 TH/MM3 Lymphocytes # (Auto) 2.0 TH/MM3 Monocytes # (Auto) 0.7 TH/MM3 Eosinophils # (Auto) 0.3 TH/MM3 Basophils # (Auto) 0.0 TH/MM3 CBC Comment DIFF FINAL Differential Comment Prothrombin Time 10.0 SEC Prothromb Time International Ratio 0.9 RATIO Activated Partial Thromboplast Time 27.0 SEC Blood Urea Nitrogen 36 MG/DL Creatinine 2.07 MG/DL Random Glucose 92 MG/DL Total Protein 7.1 GM/DL Albumin 3.4 GM/DL Calcium Level 8.6 MG/DL Alkaline Phosphatase 99 U/L Aspartate Amino Transf (AST/SGOT) 10 U/L Alanine Aminotransferase (ALT/SGPT) 20 U/L Total Bilirubin 0.2 MG/DL Sodium Level 140 MEQ/L Potassium Level 4.8 MEQ/L Chloride Level 108 MEQ/L Carbon Dioxide Level 25.2 MEQ/L Anion Gap 7 MEQ/L Estimat Glomerular Filtration Rate 29 ML/MIN Lipase 285 U/L MDM Medical Decision Making Medical Screen Exam Complete: Yes Emergency Medical Condition: Yes Interpretation(s) Last Impressions Abdomen/Pelvis CT 03/10/17 1538 Signed Impressions: Service Date/Time: Friday, March 10, 2017 17:13 - CONCLUSION: No acute findings on this noncontrast CT abdomen/pelvis. Sandeep Anders MD 1823 PM. CBC within normal limit. Hemoglobin 11.7 hematocrit 34.1. MCV 78.3. CMP within normal limit. BUN 36 with creatinine 2.07. GFR 29. Differential Diagnosis Differential diagnosis including appendicitis, UTI, pyelonephritis, nephrolithiasis, adhesion pain. Narrative Course 66-year-old female with right lower quadrant abdominal pain. Diagnosis Primary Impression: Abdominal pain Qualified Codes: R10.31 - Right lower quadrant pain Patient Instructions: General Instructions Additional Instructions: Continue with all medication. Follow-up with personal physician. Return if persistent problem or worse. blood pressure checked daily. Follow-up with personal physician if elevated blood pressure. Med/Other Pt SpecificInfo: No Change to Meds Disposition: 01 DISCHARGE HOME Condition: Stable Damien Aviles MD Mar 10, 2017 15:43
[2017-03-10] MEDS ORDERED: FAMOTIDINE 20 MG/2 ML VIAL IV PUSH ONE (15:45)
[2017-03-10] MEDS ORDERED: SODIUM CHLORIDE 0.9% FLUSH 10 ML FLUSH IV FLUSH PRN (15:45)
[2017-03-10 16:14] LABS: INTERNATIONAL NORMALIZED RATIO 0.9 RATIO
[2017-03-10 16:15] LABS: AUTOMATED NEUTROPHIL # 4.3 TH/MM3 (1.8-7.7); BASOPHIL % 0.5 % (0.0-2.0); EOSINOPHIL # 0.3 TH/MM3 (0-0.4); EOSINOPHIL % 3.5 % (0.0-4.0); HEMATOCRIT 34.1 % (35.0-46.0); HEMO FLAGS DIFF FINAL; LYMPH % 27.1 % (9.0-44.0); MEAN CELL VOLUME 78.3 FL (80.0-100.0); MEAN CORPUSCULAR HEMOGLOBIN 26.8 PG (27.0-34.0); MEAN CORPUSCULAR HGB CONC 34.2 % (32.0-36.0); MONO % 9.8 % (0.0-8.0); NEUT % 59.1 % (16.0-70.0); PLATELET COUNT 168 TH/MM3 (150-450); RED BLOOD COUNT 4.35 MIL/MM3 (4.00-5.30); RED CELL DISTRIBUTION WIDTH 15.9 % (11.6-17.2); WHITE BLOOD COUNT 7.2 TH/MM3 (4.0-11.0)
[2017-03-10 16:21] LABS: ANION GAP 7 MEQ/L (5-15); AST (GOT) 10 U/L (15-37); BICARBONATE 25.2 MEQ/L (21.0-32.0); BLOOD UREA NITROGEN 36 MG/DL (7-18); CHLORIDE 108 MEQ/L (98-107); GLOMERULAR FILTRATION RATE 29 ML/MIN (>89); POTASSIUM 4.8 MEQ/L (3.5-5.1); SODIUM (NA) 140 MEQ/L (136-145)
[2017-03-10 16:25] LABS: ALKALINE PHOSPHATASE 99 U/L (45-117); ALT (GPT) 20 U/L (10-53); TOTAL BILIRUBIN ADULT 0.2 MG/DL (0.2-1.0)
--- NOTE | 2017-03-10 18:16 | RADRPT ---
EXAM DATE/TIME: 03/10/2017 17:13 [facility] COMPARISON: CT ABDOMEN & PELVIS W/O CONTRAST, March 02, 2015, 15:28. INDICATIONS : Right lower abdomen pain today. ORAL CONTRAST: No oral contrast ingested. RADIATION DOSE: 6.64 CTDIvol (mGy) MEDICAL HISTORY : Cardiovascular disease. diabetes, hypertension, renal failure SURGICAL HISTORY : Hysterectomy. ENCOUNTER: Initial ACUITY: 1 day PAIN SCALE: 7/10 LOCATION: Right lower quadrant TECHNIQUE: Volumetric scanning of the abdomen and pelvis was performed. Using automated exposure control and ad justment of the mA and/or kV according to patient size, radiation dose was kept as low as reasonably achievable to obtain optimal diagnostic quality images. DICOM format image data is available electro nically for review and comparison. FINDINGS: LOWER LUNGS: The visualized lower lungs are clear. LIVER: Homogeneous density without lesion for noncontrast technique. There is no dilation of the biliary tr ee. No calcified gallstones. SPLEEN: Normal size without lesion. PANCREAS: Within normal limits. KIDNEYS: The right kidney has normal size without evidence of hydronephrosis or calcified stones. The left ki dney is pelvic in location and has a similar appearance to prior scan. No calcified stones. ADRENAL GLANDS: Within normal limits. VASCULAR: There is no aortic aneurysm. Calcification in the wall of the iliac vessels. BOWEL/MESENTERY: No dilated loops of small or large bowel. There are scattered calcified structures in the lateral an d posterior peritoneum, probably representing calcified lymph nodes or calcified phleboliths. These are stable in configuration and appearance when compared to prior CT scan in 2014. ABDOMINAL WALL: No hernia is seen. Lipoma of the posterolateral left chest muscles, stable. RETROPERITONEUM: There is no lymphadenopathy. BLADDER: Distended with smooth margins. No calcifications within the lumen. REPRODUCTIVE: Within normal limits. INGUINAL: There is no lymphadenopathy or hernia. MUSCULOSKELETAL: Degenerative changes in the posterior elements of the lower lumbar spine. CONCLUSION: No acute findings on this noncontrast CT abdomen/pelvis. Sandeep Anders MD on March 10, 2017 at 18:08 Board Certified Radiologist. This report was verified electronically.
[2017-03-10 18:31] VITALS: BP 165/86; PULSE 72; RESP 16; O2SAT 97
== END 2017-03-10 19:13 | disposition home or self-care (01) ==
LOC: NEPE 15:20
DX: R10.31 Right lower quadrant pain (principal); E78.00 Pure hypercholesterolemia, unspecified; K21.9 Gastro-esophageal reflux disease without esophagitis; I12.9 Hypertensive chronic kidney disease with stage 1 through stage 4 chronic kidney disease, or unspecified chronic kidney disease; E11.22 Type 2 diabetes mellitus with diabetic chronic kidney disease; N18.9 Chronic kidney disease, unspecified; Z79.899 Other long term (current) drug therapy
CPT/HCPCS: 74176; 80053; 83690; 85025; 85610; 85730; 96361; 96374; 99285; J7030

== ENCOUNTER 2017-05-30 19:57 | Emergency (ER) | payer MEDICARE ==
[~2017-05-30] VITALS: Ht 157.5 cm; Wt 56.8 kg
[~2017-05-30 19:57] MED LIST changes: -LEVEMIR SQ; +LIDO1PAD52 TOPICAL
[2017-05-30 19:59] VITALS: BP 225/105; PULSE 76; RESP 16; TEMP 98.6; O2SAT 98
[2017-05-30 20:23] VITALS: BP 215/117; PULSE 79; RESP 18; O2SAT 100
--- NOTE | 2017-05-30 20:28 | PD ---
HPI Chief Complaint: Hypertension Time Seen by Provider: 20:26 Travel History International Travel<30 days: No Contact w/Intl Traveler<30days: No Traveled to known affect area: No History of Present Illness HPI 67-year-old female with PMH of HTN, GERD, renal insufficiency presents to the ED for evaluation of elevated blood pressure. Patient states that she had an episode of dizziness this morning, called her primary care. Primary care provider started her to take her BP and blood sugar. Patient states blood sugar was "130, BP 190/something." She endorses making the normal amount of urine today. She states that she has been otherwise asymptomatic throughout the course of the day. Specifically she denies headache, dizziness, vision changes, chest pain, palpitations, shortness of breath, abdominal pain, nausea, vomiting, lower extremity edema. She states that she's been out of her blood pressure medications for 3 days. No other complaints at this time. PFSH Past Medical History Blood Disorders: No Heart Rhythm Problems: No Cancer: No Cardiovascular Problems: Yes (HTN) High Cholesterol: Yes Chemotherapy: No Chest Pain: No Congestive Heart Failure: No Diabetes: Yes Diminished Hearing: No Endocrine: Yes Gastrointestinal Disorders: Yes GERD: Yes Genitourinary: Yes Hypertension: Yes Musculoskeletal: No Neurologic: No Psychiatric: No Reproductive: No Respiratory: No Radiation Therapy: No Renal Failure: Yes Thyroid Disease: No Menopausal: Yes Tubal Ligation: Yes Past Surgical History Abdominal Surgery: Yes AICD: No Cardiac Surgery: No Section: Yes Ear Surgery: No Endocrine Surgery: No Eye Surgery: No Genitourinary Surgery: No Gynecologic Surgery: Yes (tubal ligation, hysterectomy) Hysterectomy: Yes Oral Surgery: No Pacemaker: No Thoracic Surgery: No Other Surgery: Yes (KELOID REMOVED FROM ABD) Social History Alcohol Use: No Tobacco Use: No Substance Use: No Allergies-Medications (Allergen,Severity, Reaction): Coded Allergies: meperidine (Unverified Adverse Reaction, Intermediate, ITCHING, 05/30/17) Reported Meds & Prescriptions Reported Meds & Active Scripts Active Lidocaine Patch 12 HR (Lidocaine) 5 % Patch 1 Patch TOPICAL DAILY PRN 5 Days Remove patch after 12 hours Reported Simvastatin 10 Mg Tab 10 Mg PO HS Metoprolol Succinate ER 24 HR (Metoprolol Succinate) 50 Mg Tab 50 Mg PO DAILY Nifedipine ER (Nifedipine) 90 Mg Tab 1 Tab PO DAILY Lisinopril 20 Mg Tab 20 Mg PO DAILY Allopurinol 100 Mg Tab 100 Mg PO DAILY Review of Systems Except as stated in HPI: all other systems reviewed are Neg Physical Exam Narrative GENERAL: Well-nourished, well-developed pleasant female in no acute distress. SKIN: Focused skin assessment warm/dry. HEAD: Normocephalic. EYES: No scleral icterus. No injection or drainage. PERRLA. EOMI. NECK: Supple, trachea midline. No JVD or lymphadenopathy. CARDIOVASCULAR: Regular rate and rhythm without murmurs, gallops, or rubs. RESPIRATORY: Breath sounds equal bilaterally. No accessory muscle use. GASTROINTESTINAL: Abdomen soft, non-tender, nondistended. MUSCULOSKELETAL: No cyanosis, or edema. NEUROLOGICAL: Awake and alert. Cranial nerves II through XII intact. Motor and sensory grossly within normal limits. Five out of 5 muscle strength in all muscle groups. Normal speech. BACK: Nontender without obvious deformity. No CVA tenderness. Data Data Last Documented VS Vital Signs Date Time Temp Pulse Resp B/P (MAP) Pulse Ox O2 Delivery O2 Flow Rate FiO2 05/30/17 22:18 61 18 181/109 (133) 99 Room Air 05/30/17 19:59 98.6 Orders Orders Electrocardiogram (05/30/17 20:26) Complete Blood Count With Diff (05/30/17 20:26) Comprehensive Metabolic Panel (05/30/17 20:26) Ckmb (Isoenzyme) Profile (05/30/17 20:26) Troponin I (05/30/17 20:26) Act Partial Throm Time (Ptt) (05/30/17 20:26) Prothrombin Time / Inr (Pt) (05/30/17 20:26) Urinalysis - C+S If Indicated (05/30/17 20:26) Chest, Single Ap (05/30/17 20:26) Ecg Monitoring (05/30/17 20:26) Iv Access Insert/Monitor (05/30/17 20:26) Oximetry (05/30/17 20:26) Sodium Chloride 0.9% Flush (Ns Flush) (05/30/17 20:30) Lisinopril (Prinivil) (05/30/17 20:30) Metoprolol Tartrate (Lopressor) (05/30/17 20:30) Nifedipine Sr (Procardia Xl) (05/30/17 20:30) Hydralazine Inj (Apresoline Inj) (05/30/17 22:15) CKMB (05/30/17 21:00) CKMB% (05/30/17 21:00) Hydralazine Inj (Apresoline Inj) (05/30/17 22:45) Labs Laboratory Tests Test 05/30/17 21:00 White Blood Count 6.2 TH/MM3 Red Blood Count 4.68 MIL/MM3 Hemoglobin 12.1 GM/DL Hematocrit 36.0 % Mean Corpuscular Volume 77.0 FL Mean Corpuscular Hemoglobin 26.0 PG Mean Corpuscular Hemoglobin Concent 33.8 % Red Cell Distribution Width 16.5 % Platelet Count 151 TH/MM3 Mean Platelet Volume 10.2 FL Neutrophils (%) (Auto) 61.1 % Lymphocytes (%) (Auto) 24.2 % Monocytes (%) (Auto) 12.0 % Eosinophils (%) (Auto) 2.0 % Basophils (%) (Auto) 0.7 % Neutrophils # (Auto) 3.8 TH/MM3 Lymphocytes # (Auto) 1.5 TH/MM3 Monocytes # (Auto) 0.7 TH/MM3 Eosinophils # (Auto) 0.1 TH/MM3 Basophils # (Auto) 0.0 TH/MM3 CBC Comment DIFF FINAL Differential Comment Prothrombin Time 10.0 SEC Prothromb Time International Ratio 1.0 RATIO Activated Partial Thromboplast Time 25.6 SEC Urine Color LIGHT-YELLOW Urine Turbidity CLEAR Urine pH 6.0 Urine Specific [place] 1.013 Urine Protein 300 mg/dL Urine Glucose (UA) NEG mg/dL Urine Ketones NEG mg/dL Urine Occult Blood SMALL Urine Nitrite NEG Urine Bilirubin NEG Urine Urobilinogen LESS THAN 2.0 MG/DL Urine Leukocyte Esterase SMALL Urine RBC 1 /hpf Urine WBC 5 /hpf Urine Squamous Epithelial Cells 3 /hpf Microscopic Urinalysis Comment CULT NOT INDICATED Blood Urea Nitrogen 36 MG/DL Creatinine 2.10 MG/DL Random Glucose 89 MG/DL Total Protein 7.2 GM/DL Albumin 3.5 GM/DL Calcium Level 9.1 MG/DL Alkaline Phosphatase 85 U/L Aspartate Amino Transf (AST/SGOT) 16 U/L Alanine Aminotransferase (ALT/SGPT) 16 U/L Total Bilirubin 0.3 MG/DL Sodium Level 141 MEQ/L Potassium Level 4.5 MEQ/L Chloride Level 108 MEQ/L Carbon Dioxide Level 24.8 MEQ/L Anion Gap 8 MEQ/L Estimat Glomerular Filtration Rate 28 ML/MIN Total Creatine Kinase 213 U/L Creatine Kinase MB 1.6 NG/ML Creatine Kinase MB % 0.8 % Troponin I LESS THAN 0.02 NG/ML MDM Medical Decision Making Medical Screen Exam Complete: Yes Emergency Medical Condition: Yes Differential Diagnosis Hypertension versus hypertensive urgency versus noncompliance versus other Narrative Course 67-year-old female with PMH of HTN, GERD presents to the ED for evaluation of elevated blood pressure. Patient states that she had an episode of dizziness this morning, called her primary care. Primary care provider started her to take her BP and blood sugar. Patient states blood sugar was "130, BP 190/ something." She endorses normal urine output today. She states that she has been otherwise asymptomatic throughout the course of the day. She states that she's been out of her blood pressure medications for 3 days. BP 225/105 on presentation. Physical exam reveals a nontoxic-appearing Afro[place] female in no acute distress. No focal neuro deficits. Patient was administered 90 mg nifedipine, 20 mg lisinopril and 50 mg metoprolol, her daily medications by mouth. On recheck BP 195/113. She was administered 10 mg hydralazine. EKG rate 69, sinus rhythm. AL interval 179, QRS 73, QTC 398 ms. Normal axis. No acute ST changes. Reviewed by Dr. Lombardo. CXR: No acute cardiopulmonary disease. CBC: Unremarkable. Coags: INR 1.0. Chemistry: BUN 36, creatinine 2.10. Baseline per chart review. UA: No culture indicated. On recheck patient's BP 181/109. She was administered a second dose of 10 mg hydralazine. Patient signed out to Dr. Lombardo at the end of shift. Please see his note for disposition. Lina Nash May 30, 2017 20:28
[2017-05-30] MEDS ORDERED: NIFEdipine 90 MG SUSTAINED RELEASE TAB PO ONE (20:30)
[2017-05-30] MEDS ORDERED: SODIUM CHLORIDE 0.9% FLUSH 10 ML FLUSH IVF PRN (20:30)
[2017-05-30] MEDS ORDERED: METOPROLOL TARTRATE 50 MG TAB PO ONE (20:30)
[2017-05-30] MEDS ORDERED: LISINOPRIL 20 MG TAB PO ONE (20:30)
--- NOTE | 2017-05-30 20:42 | RADRPT ---
EXAM DATE/TIME: 05/30/2017 20:35 [facility] COMPARISON: CHEST SINGLE AP, October 16, 2016, 20:05. INDICATIONS : Weakness, dizziness. Short of breath. MEDICAL HISTORY : Hypertension. SURGICAL HISTORY : None. ENCOUNTER: Initial ACUITY: 1 day PAIN SCORE: 0/10 LOCATION: Bilateral chest FINDINGS: The lungs are clear without infiltrate, nodule, or mass. There is no appreciable pleural effusion fo r technique. Heart and mediastinum are unremarkable. CONCLUSION: No acute cardiopulmonary disease. Mike Deng MD on May 30, 2017 at 20:40 Board Certified Radiologist. This report was verified electronically.
[2017-05-30 21:42] LABS: AUTOMATED NEUTROPHIL # 3.8 TH/MM3 (1.8-7.7); BASOPHIL % 0.7 % (0.0-2.0); EOSINOPHIL # 0.1 TH/MM3 (0-0.4); HEMOGLOBIN 12.1 GM/DL (11.6-15.3); LYMPH % 24.2 % (9.0-44.0); LYMPHOCYTE # 1.5 TH/MM3 (1.0-4.8); MEAN CORPUSCULAR HGB CONC 33.8 % (32.0-36.0); MEAN PLATELET VOLUME 10.2 FL (7.0-11.0); MONOCYTE # 0.7 TH/MM3 (0-0.9); NEUT % 61.1 % (16.0-70.0); PLATELET COUNT 151 TH/MM3 (150-450); RED BLOOD COUNT 4.68 MIL/MM3 (4.00-5.30); RED CELL DISTRIBUTION WIDTH 16.5 % (11.6-17.2); WHITE BLOOD COUNT 6.2 TH/MM3 (4.0-11.0)
[2017-05-30 21:46] VITALS: BP 195/113; PULSE 62; RESP 18; O2SAT 98
[2017-05-30 21:51] LABS: BILIRUBIN, URINE NEG (NEG); BLOOD, URINE SMALL (NEG); GLUCOSE,URINE NEG (NEG); KETONE, URINE NEG (NEG); NITRITE,URINE NEG (NEG); SQUAMOUS EPITHELIAL CELL URINE 3 /hpf (0-5); URINE COLOR LIGHT-YELLOW (YELLW/STRAW); URINE LEUKOCYTE ESTERASE SMALL (NEG)
[2017-05-30 22:04] LABS: ALBUMIN 3.5 GM/DL (3.4-5.0); BICARBONATE 24.8 MEQ/L (21.0-32.0); BLOOD UREA NITROGEN 36 MG/DL (7-18); CALCIUM 9.1 MG/DL (8.5-10.1); CHLORIDE 108 MEQ/L (98-107); GLOMERULAR FILTRATION RATE 28 ML/MIN (>89); GLUCOSE,RANDOM 89 MG/DL (74-106); SODIUM (NA) 141 MEQ/L (136-145)
[2017-05-30 22:06] LABS: ALT (GPT) 16 U/L (10-53); AST (GOT) 16 U/L (15-37)
[2017-05-30 22:10] LABS: ALKALINE PHOSPHATASE 85 U/L (45-117); TOTAL BILIRUBIN ADULT 0.3 MG/DL (0.2-1.0); TOTAL PROTEIN 7.2 GM/DL (6.4-8.2); TROPONIN I LESS THAN 0.02 NG/ML (0.02-0.05)
[2017-05-30] MEDS ORDERED: hydrALAZINE HCL 20 MG/ML VIAL IV PUSH ONE ×2 (22:15→22:45)
[2017-05-30 22:18] VITALS: BP 181/109; PULSE 61; RESP 18; O2SAT 99
[2017-05-30 22:44] VITALS: BP 183/110
[2017-05-30 23:28] VITALS: BP 164/93; PULSE 81; RESP 20; O2SAT 99
[2017-05-30] MEDS ORDERED: LISI-515 PO (23:36)
[2017-05-30] MEDS ORDERED: NIFE90TA2 PO (23:36)
--- NOTE | 2017-05-30 23:37 | PD ---
Physical Exam Narrative GENERAL: SKIN: Warm and dry. HEAD: Atraumatic. Normocephalic. EYES: Pupils equal and round. No scleral icterus. No injection or drainage. ENT: No nasal bleeding or discharge. Mucous membranes pink and moist. NECK: Trachea midline. No JVD. CARDIOVASCULAR: Regular rate and rhythm. RESPIRATORY: No accessory muscle use. Clear to auscultation. Breath sounds equal bilaterally. GASTROINTESTINAL: Abdomen soft, non-tender, nondistended. MUSCULOSKELETAL: Extremities without clubbing, cyanosis, or edema. No obvious deformities. NEUROLOGICAL: Awake and alert. No obvious cranial nerve deficits. Motor grossly within normal limits. Five out of 5 muscle strength in the arms and legs. Normal speech. PSYCHIATRIC: Appropriate mood and affect; insight and judgment normal. Data Data Last Documented VS Vital Signs Date Time Temp Pulse Resp B/P (MAP) Pulse Ox O2 Delivery O2 Flow Rate FiO2 05/30/17 23:28 81 20 164/93 (116) 99 05/30/17 22:18 Room Air 05/30/17 19:59 98.6 Orders Orders Electrocardiogram (05/30/17 20:26) Complete Blood Count With Diff (05/30/17 20:26) Comprehensive Metabolic Panel (05/30/17 20:26) Ckmb (Isoenzyme) Profile (05/30/17 20:26) Troponin I (05/30/17 20:26) Act Partial Throm Time (Ptt) (05/30/17 20:26) Prothrombin Time / Inr (Pt) (05/30/17 20:26) Urinalysis - C+S If Indicated (05/30/17 20:26) Chest, Single Ap (05/30/17 20:26) Ecg Monitoring (05/30/17 20:26) Iv Access Insert/Monitor (05/30/17 20:26) Oximetry (05/30/17 20:26) Sodium Chloride 0.9% Flush (Ns Flush) (05/30/17 20:30) Lisinopril (Prinivil) (05/30/17 20:30) Metoprolol Tartrate (Lopressor) (05/30/17 20:30) Nifedipine Sr (Procardia Xl) (05/30/17 20:30) Hydralazine Inj (Apresoline Inj) (05/30/17 22:15) CKMB (05/30/17 21:00) CKMB% (05/30/17 21:00) Hydralazine Inj (Apresoline Inj) (05/30/17 22:45) Ed Discharge Order (05/30/17 23:32) Labs Laboratory Tests Test 05/30/17 21:00 White Blood Count 6.2 TH/MM3 Red Blood Count 4.68 MIL/MM3 Hemoglobin 12.1 GM/DL Hematocrit 36.0 % Mean Corpuscular Volume 77.0 FL Mean Corpuscular Hemoglobin 26.0 PG Mean Corpuscular Hemoglobin Concent 33.8 % Red Cell Distribution Width 16.5 % Platelet Count 151 TH/MM3 Mean Platelet Volume 10.2 FL Neutrophils (%) (Auto) 61.1 % Lymphocytes (%) (Auto) 24.2 % Monocytes (%) (Auto) 12.0 % Eosinophils (%) (Auto) 2.0 % Basophils (%) (Auto) 0.7 % Neutrophils # (Auto) 3.8 TH/MM3 Lymphocytes # (Auto) 1.5 TH/MM3 Monocytes # (Auto) 0.7 TH/MM3 Eosinophils # (Auto) 0.1 TH/MM3 Basophils # (Auto) 0.0 TH/MM3 CBC Comment DIFF FINAL Differential Comment Prothrombin Time 10.0 SEC Prothromb Time International Ratio 1.0 RATIO Activated Partial Thromboplast Time 25.6 SEC Urine Color LIGHT-YELLOW Urine Turbidity CLEAR Urine pH 6.0 Urine Specific [place] 1.013 Urine Protein 300 mg/dL Urine Glucose (UA) NEG mg/dL Urine Ketones NEG mg/dL Urine Occult Blood SMALL Urine Nitrite NEG Urine Bilirubin NEG Urine Urobilinogen LESS THAN 2.0 MG/DL Urine Leukocyte Esterase SMALL Urine RBC 1 /hpf Urine WBC 5 /hpf Urine Squamous Epithelial Cells 3 /hpf Microscopic Urinalysis Comment CULT NOT INDICATED Blood Urea Nitrogen 36 MG/DL Creatinine 2.10 MG/DL Random Glucose 89 MG/DL Total Protein 7.2 GM/DL Albumin 3.5 GM/DL Calcium Level 9.1 MG/DL Alkaline Phosphatase 85 U/L Aspartate Amino Transf (AST/SGOT) 16 U/L Alanine Aminotransferase (ALT/SGPT) 16 U/L Total Bilirubin 0.3 MG/DL Sodium Level 141 MEQ/L Potassium Level 4.5 MEQ/L Chloride Level 108 MEQ/L Carbon Dioxide Level 24.8 MEQ/L Anion Gap 8 MEQ/L Estimat Glomerular Filtration Rate 28 ML/MIN Total Creatine Kinase 213 U/L Creatine Kinase MB 1.6 NG/ML Creatine Kinase MB % 0.8 % Troponin I LESS THAN 0.02 NG/ML [facility] Medical Record Reviewed: Yes Supervised Visit with ALEC: Yes Narrative Course Patient continued to be asymptomatic for any hypertension related complications. The patient now after receiving IV hydralazine on repeated evaluation his blood pressure has decreased to the 160s over 80s with a combination of hydralazine IV as well as his p.o. meds of metoprolol lisinopril and nifedipine ER. Diagnosis Primary Impression: HTN NONCOMPLIANT Patient Instructions: General Instructions, Hypertension (DC) Additional Instruction: SEE YOUR PRIMARY CARE DOCTOR FOR FURTHER REFILLS TODAY YOU WERE GIVEN REFILLS OF LISINOPRIL AND NIFEDIPINE ER Disposition: 01 DISCHARGE HOME Condition: Stable Yaya Lombardo MD May 30, 2017 23:37
--- NOTE | 2017-05-31 14:50 | EKG ---
Date Performed: 05/30/2017 Time Performed: 20:26:46 PTAGE: 67 years EKG: Sinus rhythm WITH SINUS ARRHYTHMIA POSSIBLE LEFT ATRIAL ENLARGEMENT BORDERLINE ECG PREVIOUS TRACING : 03/02/2015 13.24 Since the prior tracing, there has been no significant gurrola DOCTOR: Stan Vazquez Interpretating Date/Time 05/31/2017 14:43:22
== END 2017-05-31 00:12 | disposition home or self-care (01) ==
LOC: NEPC 19:57
DX: I10 Essential (primary) hypertension (principal); R42 Dizziness and giddiness; I49.9 Cardiac arrhythmia, unspecified; N28.9 Disorder of kidney and ureter, unspecified; K21.9 Gastro-esophageal reflux disease without esophagitis; E78.00 Pure hypercholesterolemia, unspecified; E11.9 Type 2 diabetes mellitus without complications; Z79.899 Other long term (current) drug therapy
CPT/HCPCS: 71045; 80053; 81001; 82550; 82552; 84484; 85025; 85610; 85730; 93005; 96374; 99285; J0360